=== PATIENT | male | born 1970 | race Caucasian/White ===

== ENCOUNTER → 2016-11-22 | Outpatient (REF) ==
--- NOTE | 2016-11-23 02:53 | REP ---
Clinical: Pain and disability. Technique: AP, lateral, coned-down views of the lumbosacral spine. Findings: Alignment is maintained. No acute fracture / compression injury or subluxation is appreciated. No significant, overt degenerative changes by radiographic evaluation. Impression: Relatively age-appropriate examination. If the patient remains symptomatic consider MRI for further investigation. Signed by Escobar Duarte MD 11/23/2016 02:44 A
== END ==
LOC: M SMT 12:15
PROVIDERS: ATTEND Internal Medicine
DX: Z02.9 Encounter for administrative examinations, unspecified (principal)